=== PATIENT | male | born 2000 | race Caucasian/White ===

== ENCOUNTER 2021-09-05 20:35 | Emergency (ER) | payer OTHER, SELFPAY ==
--- NOTE | 2021-09-05 20:45 | DI.RAD_ITS ---
Exam(s) XR CHEST 2V PA LATERAL EXAM: XR CHEST 2V PA LATERAL CLINICAL HISTORY: fever, left chest discomfort. TECHNIQUE: 2D digital imaging was performed. COMPARISON: No exams were available for comparison FINDINGS: 2 views: Heart size is normal. The mediastinum is not widened. Lungs are clear. No infiltrates nor pleural effusions. IMPRESSION: No acute pulmonary findings. DATA REPOSITORY: RADIATION DOSE DELIVERED:
[2021-09-05 20:46] VITALS: BP 121/60; PULSE 80; RESP 14; TEMP 37; O2SAT 99
--- NOTE | 2021-09-05 21:04 | ED.GENADUL_ITS ---
Discharge Plan Disposition Patient Disposition: HOME Condition: Stable Discharge Details Clinical Impression: Fever Primary Care Provider: Unknown,Unknown ED Provider: Scar Morocho Home Meds and New Rx's Prescriptions: New doxycycline hyclate 100 mg tablet 100 mg PO BID Qty: 28 0RF Continued acetaminophen 325 mg Tablet 325 mg PO ONCE PRN Discharge Instructions Additional Instructions: Your white blood cell count and platelets were very mildly low and one of your liver function tests were minimally elevated. These can be signs of a tick born illness follow up with your primary care provider in 1 week especially if not improving if you feel more ill, have severe worsening pain or difficulty breathing return to the emergency department Medical Decision Making 20 yo male who denies chronic medical problems comes in with complaints of body aches and fever since Friday. HE states his fever was 102 that night and has been 99.8 at night the last few nights. HE denies cough, fevers, headache, neck stiffness, abdomen pain, urinary symptoms. HE denies ivdu. He arrives stable and in no distress and appears well. He has soft nontender abdomen, clear lungs, no rashes, no meningismus. He localizes pain right now to the left lateral chest and has tenderness over the 4-5 ribs in mid anterior axillary line. Given lack of cough feel entities such as covid unlikely, will obtain xray to evaluate for possible infiltrate though this seems unlikely given no respiratory symptoms. Will obtain cbc and cmp and tick panel. Symptoms and exam not consistent with leather seasoner infection or intrabdominal pathology and has no midline back tenderness/pain and no ivdu so doubt spinal epidural abscess. pt stable, xray unremarkable. Labs show mild leukopenia and thrombocytopenia and ast 41 so concern this is a tick born illness such as lyme or ehrlichiosis. Will start him on oral doxy and he will f/u with pcp in a week, return precautions given Differential Diagnosis Differential Diagnosis: lyme, pneumonia, pleurisy Imaging Data Radiologic Study: Attestation: I personally reviewed and interpreted this imaging study as follows: Imaging: X-Ray Radiologist's impression: no acute findings Lab Data Lab results reviewed: Yes I reviewed the patient's lab results. HPI General Mode of arrival: ambulatory . Date/Time Provider Initiated Documentation: 09/05/21 20:40 . Limitations to Documentation: no limitations . Information obtained by: patient . History of Present Illness 20 year old M presents to the emergency department with the chief complaint of fever, described as moderate, Patient started experiencing this day(s) (5) and it has been constant. No relieving factors improve symptom(s), No exacerbating factors reported . Patient notes no other symptoms.. Patient did receive the following treatments prior to arrival, none Related Data Home Medications Medication Instructions Recorded Confirmed acetaminophen 325 mg tablet 325 mg PO ONCE PRN 09/05/21 09/05/21 doxycycline hyclate 100 mg tablet 100 mg PO BID #28 tabs 09/05/21 Previous Rx's Medication Instructions Recorded doxycycline hyclate 100 mg tablet 100 mg PO BID #28 tabs 09/05/21 Allergies Allergy/AdvReac Type Severity Reaction Status Date / Time No Known Allergies Allergy Unverified 09/05/21 20:57 General Stated Complaint: Nk/Back Pain ROYER: 3 Review of Systems All systems reviewed & are unremarkable except as noted in HPI and below Constitutional Constitutional: Denies chills and Denies weakness Eyes Eyes: Denies loss of vision ENT Ears, Nose, Mouth, and Throat: Denies change in voice Cardiovascular Cardiovascular: Denies dyspnea Respiratory Respiratory: Denies cough and Denies dyspnea Gastrointestinal Gastrointestinal: Denies abdominal pain, Denies nausea and Denies vomiting Genitourinary Genitourinary: Denies dysuria Musculoskeletal Musculoskeletal: Denies joint swelling Integumentary/Breasts Skin/Breast: Denies rash Neurologic Neurologic: Denies loss of vision and Denies weakness PFSH All Active Problems (Updated 09/05/21 @ 22:07 by Scar Morocho MD) Fever (Acute) Social History Smoking/Tobacco Use Status: Current every day Tobacco Type: e-cigarettes Tobacco: How many years used: 1 Smoking risk assessment performed?: Yes Substance use type: marijuana Do you feel safe at home: Yes Do you feel safe in your relationship?: Yes Exam Const General: no acute distress Orientation: alert HENMT Head: normal to inspection Ears: external ears normal General nose exam: external nose normal Mouth: moist mucous membranes Eyes General: appearance normal, both eyes and all related structures Neck Neck: normal visual inspection Resp Effort & Inspection: normal respiratory effort and able to speak in complete sentences Cardio Rate: regular rate GI Palpation: soft and nontender Skin General skin exam: no rashes or lesions noted Neuro General: patient alert and patient oriented x3 Extrem General: normal to inspection Psych Mental Status: mental status grossly normal Course Vital Signs Vital signs: Vital Signs Temperature 37.0 C 09/05/21 20:46 Pulse 80 09/05/21 20:46 Respiratory Rate 14 09/05/21 20:46 Blood Pressure 121/60 09/05/21 20:46 Pulse Oximetry 99 09/05/21 20:46 Temperature 37.0 C 09/05/21 20:46 Temperature Source Tympanic 09/05/21 20:46 Pulse 80 09/05/21 20:46 Respiratory Rate 14 09/05/21 20:46 Respiratory Effort 09/05/21 20:51 Blood Pressure 121/60 09/05/21 20:46 Blood Pressure Position Supine 09/05/21 20:46 Pulse Oximetry 99 09/05/21 20:46 Oxygen Delivery Method Room Air 09/05/21 20:46 Oxygen Flow Rate 0 09/05/21 20:46 Pain Level 4 09/05/21 20:51 PAWSS Have you Been Recently Intoxicated or Drunk Within the Last 30 days?: No Have you Ever Experienced Previous Episodes of Alcohol Withdrawal?: No Have you ever Experienced Withdrawal Seizures?: No Have you ever Experienced Delirium Tremens(DT)s?: No Have you ever undergone Alcohol Rehabilitation Treatment (i.e, inpt ot ou tpatient treatment programs)?: No Have you ever Experienced Blackouts?: No Have you ever Combined Alcohol with other Downers within the last 90 days?: No Have you ever Combined Alcohol with any other Substance of Abuse during the last 90 days?: No Positive Blood Alcohol level on Presentation? [PCS.BAL]: No Evidence of Increased Autonomic Activity (i.e. HR>120, tremor, sweating, agitation, nausea)?: No Result: 0
[2021-09-05 21:15] LABS: Abs Immature Grans 0.01 10^3/uL (0.0-0.06); Absolute Basophil Count 0.03 10^3/uL (0.0-0.2); Absolute Eosinophil Count 0.01 10^3/uL (0.0-0.7); Absolute Lymphocyte Count 1.51 10^3/uL (1.2-3.4); Absolute Monocyte Count 0.47 10^3/uL (0.1-0.8); Basophils % 0.7; Eosinophils % 0.2; HGB 14.1 g/dL (13.5-17.5); Immature Grans % 0.2; Lymphocytes % 37.1; MCH 29.5 pg (27.0-33.0); MCHC 35.3 % (32.0-36.0); MCV 84 fL (80-95); MPV 10.8 fL (8.0-11.0); Monocytes % 11.5; Neutrophils % 50.3; RBC 4.78 10^6/uL (4.36-5.78); RDW 11.9 % (11.8-14.1); RDW-SD 36.4 fL; WBC 4.07 10^3/uL (4.4-10.8)
[2021-09-05 21:22] LABS: Absolute Neutrophil Count 2.05 10^3/uL (1.2-6.7)
[2021-09-05 21:33] LABS: ALT 36 U/L (16-63); AST 41 U/L (15-37); Albumin 4.5 g/dL (3.4-5.0); Alkaline Phosphatase 63 U/L (46-116); Anion Gap 8.3 mmol/L (3-11); BUN 8 mg/dL (7-18); Bilirubin, Total 0.7 mg/dL (0.2-1.0); CO2 26.7 mmol/L (21.0-32.0); CREATININE 0.9 mg/dL (0.70-1.30); Calcium 9.6 mg/dL (8.5-10.1); Chloride 102 mmol/L (98-107); Glucose 109 mg/dL (74-106); Potassium 3.5 mmol/L (3.5-5.1); Sodium 137 mmol/L (136-145); Total Protein 7.3 g/dL (6.4-8.2)
[2021-09-05 21:43] LABS: Diff Comment PLT Morph Reviewed; Platelet Count 109 10^3/uL (130-400)
[2021-09-05 21:44] LABS: RBC Morphology Normal
--- NOTE | 2021-09-05 21:55 | DI.VRAD_ITS ---
PROCEDURE INFORMATION: Exam: XR Chest Exam date and time: 09/05/2021 9:11 PM Age: 20 years old Clinical indication: Pain; Left-sided and other: Chest discomfort TECHNIQUE: Imaging protocol: Radiologic exam of the chest. Views: 2 views. COMPARISON: No relevant prior studies available. FINDINGS: Lungs: Unremarkable. No consolidation. Pleural spaces: Unremarkable. No pleural effusion. No pneumothorax. Heart/Mediastinum: Unremarkable. No cardiomegaly. Bones/joints: Unremarkable. IMPRESSION: No acute findings. Dictated and Authenticated by: Scar Lopez MD. Ordering:WONG Abbott MD
[2021-09-05] MEDS: Doxycycline Hyclate 100 MG CAP PO (22:22)
[2021-09-05 22:23] VITALS: BP 121/67; PULSE 81; RESP 18; O2SAT 99
[2021-09-07 10:21] LABS: Lyme Ab w Rflx to Lyme Confirm Negative (Negative)
[2021-09-08 09:39] LABS: B. miyamotoi PCR Negative (Negative); Babesia divergens/MO-1 Negative (Negative); Babesia duncani Negative (Negative); Babesia microti Negative (Negative); Ehrlichia chaffeensis Negative (Negative); Ehrlichia ewingii/canis Negative (Negative); Ehrlichia muris eauclairensis Negative (Negative)
[2021-09-08 09:57] LABS: Anaplasma phagocytophilum Positive (Negative)
--- NOTE | 2021-09-08 10:05 | W.ED.FU ---
Follow Up Plan: 09/08/21 Laboratory called to report that patient is positive for Anaplasma phagocytophilum. He was seen here in the ED on 09/05 for fever and a tickborne illness was suspected and he was started on doxycycline 100 mg twice daily for 14 days. Consultation to [facility] infectious disease placed for recommendations and ID Dr. Gilman states that as remainder of tick and Lyme panel was unremarkable, treatment with doxycycline as given was appropriate and no further recommendations at this time. Patient called on cell number listed on chart and no answer. Message left for patient to return call to the emergency department.
--- NOTE | 2021-09-11 08:09 | W.ED.FU ---
Follow Up Plan: Patient made aware regarding positive Anaplasma result, I reviewed prior documentation, patient on doxycycline which is appropriate therapy
== END 2021-09-05 22:23 | disposition home or self-care (01) ==
PROVIDERS: Emergency Provider Emergency Medicine
DX: R50.9 Fever, unspecified (principal); D69.6 Thrombocytopenia, unspecified; D72.819 Decreased white blood cell count, unspecified; A79.82 Anaplasmosis [A. phagocytophilum]
CPT/HCPCS: 80053; 87798; 99283; 71046; 85025; 86618